=== PATIENT | male | born 1995 | race Two or more races ===

== ENCOUNTER 2023-05-05 16:55 | Emergency (ER) | payer OTHER ==
[~2023-05-05] VITALS: Ht 170.2 cm; Wt 100.0 kg
[2023-05-05 17:18] VITALS: TEMP 98.2
[2023-05-05 17:20] VITALS: BP 129/78; PULSE 92; RESP 18
[2023-05-05] MEDS ORDERED: DOXYCYCLINE HYCLATE 100 MG TABLET PO ONE (17:45)
[2023-05-05] MEDS ORDERED: HYDROCODONE/ACETAMINOPHEN 5-325 MG TABLET PO ONE (17:45)
[2023-05-05] MEDS ORDERED: CEPHALEXIN MONOHYDRATE 500 MG CAPSULE PO ONE (17:45)
[2023-05-05] MEDS ORDERED: KETOROLAC TROMETHAMINE 60 MG/2 ML VIAL IM ONE (17:45)
[2023-05-05] MEDS ORDERED: LIDOCAINE 1% 10 ML VIAL SQ ONE (17:45)
[2023-05-05 19:08] LABS: COVID AG,FIA SOURCE NASAL SWAB
[2023-05-05 19:33] LABS: SARS-COV2 (COVID) ANTIGEN,FIA Negative (Negative)
== END 2023-05-05 19:38 | disposition home or self-care (01) ==
LOC: EMS 16:57
DX: L73.2 Hidradenitis suppurativa (principal); Z20.822 Contact with and (suspected) exposure to COVID-19
CPT/HCPCS: 99284; 10060; 87426; 96372; J1885; J3490